=== PATIENT | female | born 1970 | race Caucasian/White ===

== ENCOUNTER 2021-01-21 10:49 | Emergency (ER) | payer OTHER ==
[2021-01-21 11:02] VITALS: TEMP 99.6; BMI 30.4
[2021-01-21 12:42] LABS: BASO % 0.8 % (0-2.0); EOS % 3.3 % (0-4.5); HEMATOCRIT 32.7 % (32.4-45.2); HEMOGLOBIN 10.6 GM/dL (10.7-15.3); LYMPH % 31.7 % (8-40); MCH 25.5 pg (25.7-33.7); MCHC 32.3 g/dl (32.0-36.0); MEAN CELL VOLUME 78.9 fl (80-96); MONO % 10.2 % (3.8-10.2); PLATELET COUNT 352 10^3/uL (134-434); RBC 4.15 M/mm3 (3.60-5.2); RDW 15.9 % (11.6-15.6); WHITE BLOOD COUNT 7.9 K/mm3 (4.0-10.0)
[2021-01-21] MEDS ORDERED: SODIUM CHLORIDE 1,000 ML IV STA (12:43)
[2021-01-21 13:01] LABS: CALCIUM 8.9 mg/dL (8.5-10.1)
[2021-01-21 13:02] LABS: ALBUMIN 3.3 g/dl (3.4-5.0); BLOOD UREA NITROGEN 7.1 mg/dL (7-18)
[2021-01-21 13:05] LABS: CREATININE 0.5 mg/dL (0.55-1.3)
[2021-01-21 13:06] LABS: BILIRUBIN,TOTAL 0.6 mg/dL (0.2-1); TOT PROT 7.2 g/dl (6.4-8.2)
[2021-01-21 15:43] VITALS: BP 114/76; PULSE 65
== END 2021-01-21 16:35 | disposition home or self-care (01) ==
LOC: JER 10:49
DX: R10.31 Right lower quadrant pain (principal); R10.2 Pelvic and perineal pain; D25.9 Leiomyoma of uterus, unspecified
CPT/HCPCS: 36415; 74177-TC; 80053; 83690; 84703; 85025; 99285-25; Q9967